=== PATIENT | female | born 1980 | race Caucasian/White ===

== ENCOUNTER 2016-09-18 11:28 | Emergency (ER) | payer OTHER ==
[~2016-09-18] VITALS: Ht 157.5 cm; Wt 77.7 kg
[~2016-09-18 11:28] MED LIST: DICY10CA60 PO; DOCU-144 PO; IBUP-1542 PO; METO10TA92 PO; ONDA4TAB35 PO
[2016-09-18 11:32] VITALS: Ht 157.5 cm; Wt 77.7 kg
[2016-09-18] MEDS ORDERED: GUAI-637 PO (13:24)
--- NOTE | 2016-09-18 13:51 | ERD ---
ER Documentation Chief Complaint Date/Time DATE: 09/18/16 TIME: 13:48 Chief Complaint pt bib self with c/o cough since Tuesday, pt is 37wks preg, no OB complaints HPI This is a 35-year-old female that presents to the ER with cold symptoms that started on Tuesday. On Tuesday patient states that she developed a cough. Cough is worsening. On patient states she went to her OB who gave her Robitussin. Patient has been taking Robitussin, however cough continues. Patient denies any chest pain or shortness of breath. She denies any fevers or chills. She does admit to left ear pain. Patient denies any discharge from her left ear. Patient does not have any OB complaints. She denies any pelvic pain she denies any vaginal leakage or any type of contractions. ROS 12 point review of systems was done, all negative except per HPI. Medications Home Meds Active Scripts Guaifenesin* (Robitussin*) 100 Mg/5 Ml Syrup, 200 MG PO Q6H Y for COUGH for 3 Days, ML Prov:MARCIA MOREJON 09/18/16 Metoclopramide* (Reglan*) 10 Mg Tablet, 10 MG PO Q6 Y for NAUSEA AND/OR VOMITING , #10 TAB Prov:AARON RUBIN DO 03/06/16 Docusate Sodium* (Colace*) 100 Mg Capsule, 100 MG PO TID, #30 CAP Prov:SCOTTIEAARON 03/06/16 Ondansetron Hcl* (Zofran* ODT) 4 mg -ODT Tab.disper, 4 MG PO Q8, #30 TAB Prov:ABDIEL CONTRERAS NP 02/01/16 Ibuprofen* (Motrin*) 600 Mg Tab, 600 MG PO Q6H Y for PAIN AND OR ELEVATED TEMP, #30 TAB Prov:ABDIEL CONTRERAS NP 02/01/16 Dicyclomine Hcl* (Bentyl*) 10 Mg Capsule, 20 MG PO QID, #20 CAP Prov:ABDIEL CONTRERAS NP 02/01/16 Allergies Allergies: Coded Allergies: amoxicillin (Verified Allergy, Unknown, 03/30/16) PMhx/Soc Medical and Surgical Hx: pt denies Medical Hx History of Surgery: Yes (,tonsillectomy,sinus sx) Anesthesia Reaction: No Hx Neurological Disorder: No Hx Respiratory Disorders: No Hx Cardiac Disorders: No Hx Psychiatric Problems: No Hx Miscellaneous Medical Probl: No Hx Alcohol Use: No Hx Substance Use: No Hx Tobacco Use: No Smoking Status: Never smoker Physical Exam Vitals Vital Signs Date Time Temp Pulse Resp B/P Pulse Ox O2 Delivery O2 Flow Rate FiO2 09/18/16 11:32 97.3 88 20 115/56 97 Physical Exam GENERAL: The patient is well-developed, well-nourished, in no acute distress. NECK: Cervical spine is non tender with no step off. Supple, no nuchal rigidity HEENT: Atraumatic. Pupils equal, round and reactive to light. Extraocular muscles are grossly intact. Conjunctivae pink, no discharge. Bilateral tympanic membranes are clear with no evidence of erythema, effusion or dulling of the light reflex. Tonsilar erythema with no exudates or uvular deviation. Clear rhinorrhea. RESPIRATORY: Clear to auscultation bilaterally. There are no rales, wheezes or rhonchi. HEART: Regular rate and rhythm. No murmurs, clicks, rubs or gallops. EXTREMITIES: No clubbing or cyanosis. Full range of motion. Grossly neurovascularly intact. NEUROLOGIC: Alert and oriented. Cranial nerves II through XII are intact. SKIN: There is no rash. The skin is warm and dry. Procedures/MDM Differential diagnosis includes but is not limited to; Viral URI, allergic rhinitis, bronchitis, pertussis,pneumonia. This is likely viral in etiology. Clinical suspicion for pneumonia is low as patient appears well, is not hypoxic or in any respiratory distress. Additionally, patients physical examination is benign. Plan was discussed with patient they understand and agree. Patient needs to follow up with PCP in 1-2 days or return to ER sooner if symptoms worsen. Departure Diagnosis: Primary Impression: Upper respiratory infection Condition: Stable Patient Instructions: Preventing Common Respiratory Infections Referrals: SABINO SANTILLAN Additional Instructions: Llame al doctor AMANDA y rochelle eulalio LESTER PARA DENTRO DE 1-2 CORTES.Dgale a la secretaria que nosotros le instruimos hacer esta lester.Avise o llame si zamora condicin se empeora antes de la lester. Regresa aqui si peor o no mejor. MARCIA MOREJON Sep 18, 2016 13:51
== END 2016-09-18 13:30 | disposition home or self-care (01) ==
LOC: FTE 11:28
DX: O99.513 Diseases of the respiratory system complicating pregnancy, third trimester (principal); J06.9 Acute upper respiratory infection, unspecified; Z3A.37 37 weeks gestation of pregnancy
CPT/HCPCS: 99283

== ENCOUNTER 2016-10-04 23:49 | Emergency (ER) | payer OTHER ==
[~2016-10-04] VITALS: Ht 162.6 cm; Wt 47.7 kg
[~2016-10-04 23:49] MED LIST changes: +GUAI-637 PO
[2016-10-05 00:03] VITALS: Ht 162.6 cm; Wt 47.7 kg
[2016-10-05 01:24] LABS: ADD SCAN DIFF NO
[2016-10-05 01:26] LABS: BASOPHILS % 0.1 % (0.0-2.0); EOSINOPHILS # 0.1 10^3/ul (0.0-0.5); EOSINOPHILS % 1.3 % (0.0-7.0); HEMATOCRIT 39.8 % (37.0-47.0); HEMOGLOBIN 13.2 g/dl (12.0-16.0); LYMPHOCYTES # 2.1 10^3/ul (0.8-2.9); LYMPHOCYTES % 26.9 % (15.0-51.0); MEAN CORPUSCULAR HGB CONC 33.2 g/dl (32.0-37.0); MEAN CORPUSCULAR VOLUME 93.4 fl (82.0-101.0); MEAN PLATELET VOLUME 9.5 fl (7.4-10.4); MONOCYTE # 0.5 10^3/ul (0.3-0.9); MONOCYTES % 6.2 % (0.0-11.0); NEUTROPHIL # 5.1 10^3/ul (1.6-7.5); NEUTROPHILS % 65.1 % (39.0-77.0); PLATELET COUNT 314 10^3/UL (140-415); RED BLOOD COUNT 4.26 10^6/ul (4.20-5.40); RED CELL DISTRIBUTION WIDTH 13.4 % (11.5-14.5); WHITE BLOOD COUNT 7.8 10^3/ul (4.8-10.8)
[2016-10-05 01:27] VITALS: BP 120/73; PULSE 71; RESP 20; TEMP 98
[2016-10-05] MEDS ORDERED: LORAZEPAM 2 MG INJ IV ONE (01:30)
[2016-10-05 01:33] LABS: ALBUMIN 3.9 g/dl (3.3-4.9)
[2016-10-05 01:34] LABS: POTASSIUM 3.5 mmol/L (3.5-5.1)
[2016-10-05 01:35] LABS: INR 0.94; PROTIME 12.6 Sec (12.2-14.2)
[2016-10-05 01:36] LABS: BILIRUBIN,INDIRECT 0.2 mg/dl (0-1.1); BILIRUBIN,TOTAL 0.2 mg/dl (0.2-1.3); CREATININE 0.58 mg/dl (0.44-1.00); PARTIAL THROMBOPLASTIN TIME 29.9 Sec (25.0-35.0)
[2016-10-05 01:37] LABS: ALBUMIN/GLOBULIN RATIO 1.11; CALCIUM 9.1 mg/dl (8.4-10.2); TOTAL PROTEIN 7.4 g/dl (6.1-8.1)
--- NOTE | 2016-10-05 01:43 | RADRPT ---
PROCEDURE: XR Chest. CLINICAL INDICATION: Chest pain. TECHNIQUE: Single frontal chest x-ray. COMPARISON: None. FINDINGS: The cardiomediastinal silhouette is unremarkable. The lungs are clear. No focal infiltrate is seen. There is no pleural effusion. There is no pneumothorax. The osseous structures are unremarkable. IMPRESSION: 1. No active disease. RPTAT: HMVK .Hunter Taylor MD, MD Date Time Electronically viewed and signed by .Hunter Taylor MD, on 10/05/2016 01:42 .K/
[2016-10-05 01:50] LABS: TROPONIN-I 0.019 ng/ml (0.00-0.12)
--- NOTE | 2016-10-05 01:55 | ERD ---
ER Documentation Chief Complaint Date/Time DATE: 10/05/16 TIME: 01:54 Chief Complaint LT SIDE CP RADIATING TO LEFT ARM +SOB X1 WEEK WORSE TONIGHT HPI This is a 35 year female with a chest pain rating to left arm. She has had shortness of breath. Says it is worse tonight. No fevers no chills. She has been under a lot of stress lately. She denies any other current complaints. ROS All systems reviewed and are negative except as per history of present illness. Medications Home Meds Active Scripts Guaifenesin* (Robitussin*) 100 Mg/5 Ml Syrup, 200 MG PO Q6H Y for COUGH for 3 Days, ML Prov:MARCIA MOREJON 09/18/16 Metoclopramide* (Reglan*) 10 Mg Tablet, 10 MG PO Q6 Y for NAUSEA AND/OR VOMITING , #10 [facility] 03/06/16 Docusate Sodium* (Colace*) 100 Mg Capsule, 100 MG PO TID, #30 CAP [facility] 03/06/16 Ondansetron Hcl* (Zofran* ODT) 4 mg -ODT Tab.disper, 4 MG PO Q8, #30 TAB Prov:ABDIEL CONTRERAS FORM GRADER OPERATOR 02/01/16 Ibuprofen* (Motrin*) 600 Mg Tab, 600 MG PO Q6H Y for PAIN AND OR ELEVATED TEMP, #30 TAB Prov:ABDIEL CONTRERAS FORM GRADER OPERATOR 02/01/16 Dicyclomine Hcl* (Bentyl*) 10 Mg Capsule, 20 MG PO QID, #20 CAP Prov:ABDIEL CONTRERAS FORM GRADER OPERATOR 02/01/16 Allergies Allergies: Coded Allergies: amoxicillin (Verified Allergy, Unknown, 03/30/16) PMhx/Soc History of Surgery: Yes (,tonsillectomy,sinus sx) Anesthesia Reaction: No Hx Neurological Disorder: No Hx Respiratory Disorders: No Hx Cardiac Disorders: No Hx Psychiatric Problems: No Hx Miscellaneous Medical Probl: No Hx Alcohol Use: No Hx Substance Use: No Hx Tobacco Use: No Smoking Status: Never smoker Physical Exam Vitals Vital Signs Date Time Temp Pulse Resp B/P Pulse Ox O2 Delivery O2 Flow Rate FiO2 10/05/16 01:27 98.0 71 20 120/73 100 Room Air 10/05/16 01:27 Nasal Cannula 10/05/16 00:03 97.9 85 24 141/78 97 Physical Exam Const: [] Head: Atraumatic Eyes: Normal Conjunctiva ENT: Normal External Ears, Nose and Mouth. Neck: Full range of motion..~ No meningismus. Resp: Clear to auscultation bilaterally Cardio: Regular rate and rhythm, no murmurs Abd: Soft, non tender, non distended. Normal bowel sounds Skin: No petechiae or rashes Back: No midline or flank tenderness Ext: No cyanosis, or edema Neur: Awake and alert Psych: Normal Mood and Affect Result Diagram: 10/05/169910/05/16 0100 Results 24 hrs Laboratory Tests Test 10/05/16 01:00 Activated Partial Thromboplast Time 29.9Sec Alanine Aminotransferase (ALT/SGPT) 43IU/L Albumin 3.9g/dl Albumin/Globulin Ratio 1.11 Alkaline Phosphatase 107IU/L Anion Gap 18 Aspartate Amino Transf (AST/SGOT) 33IU/L B-Type Natriuretic Peptide 39PG/ML Basophils # 0.010^3/ul Basophils % 0.1% Blood Urea Nitrogen 10mg/dl Calcium Level 9.1mg/dl Carbon Dioxide Level 22mmol/L Chloride Level 107mmol/L Creatinine 0.58mg/dl Direct Bilirubin 0.00mg/dl Eosinophils # 0.110^3/ul Eosinophils % 1.3% Globulin 3.50g/dl Glucose Level 87mg/dl Hematocrit 39.8% Hemoglobin 13.2g/dl INR International Normalized Ratio 0.94 Indirect Bilirubin 0.2mg/dl Lymphocytes # 2.110^3/ul Lymphocytes % 26.9% Mean Corpuscular Hemoglobin 31.0pg Mean Corpuscular Hemoglobin Concent 33.2g/dl Mean Corpuscular Volume 93.4fl Mean Platelet Volume 9.5fl Monocytes # 0.510^3/ul Monocytes % 6.2% Neutrophils # 5.110^3/ul Neutrophils % 65.1% Nucleated Red Blood Cells # 0.010^3/ul Nucleated Red Blood Cells % 0.0/100WBC Platelet Count 77233^3/UL Potassium Level 3.5mmol/L Prothrombin Time 12.6Sec Prothrombin Time Ratio 1.0 Red Blood Count 4.2610^6/ul Red Cell Distribution Width 13.4% Sodium Level 143mmol/L Total Bilirubin 0.2mg/dl Total Protein 7.4g/dl Troponin I 0.019ng/ml White Blood Count 7.810^3/ul Current Medications Medications (Trade) Dose Ordered Sig/Damaris Route PRN Reason Start Time Stop Time Status Last Admin Dose Admin Lorazepam (Ativan) 1 mg ONCE ONCE IV 10/05/16 01:30 10/05/16 01:31 DC 10/05/16 01:34 Procedures/MDM Chest X-ray 1V Interpreted by me: Soft Tissue: No acute abnormalities Bones: No acute abnormalities Mediastinum/Cardiac Silhouette/Lungs: No acute abnormalities EKG: Rate/Rhythm: Normal Sinus Rhythm QRS, ST, T-waves: No changes consistent w/ acute ischemia Impression: No evidence of ischemia or arrhythmia Patient's thoracic symptoms have stabilized while in the department and are stable for outpatient follow up. Exam and work up not consistent w/ ischemia, arrhythmia, PE or dissection. Departure Diagnosis: Primary Impression: Chest pain Chest pain type: unspecified Qualified Code: R07.9 - Chest pain, unspecified type Condition: Stable MARIO MILLER Oct 05, 2016 01:54
[2016-10-05] MEDS ORDERED: LORA-441 PO (01:58)
== END 2016-10-05 03:03 | disposition home or self-care (01) ==
LOC: E/R 23:49
DX: R07.9 Chest pain, unspecified (principal); R06.02 Shortness of breath
CPT/HCPCS: 36415; 71010; 80053; 83880; 84484; 85025; 85610; 85730; 93005; 96374; J2060; Z7502

== ENCOUNTER 2016-10-08 22:59 | Emergency (ER) | payer OTHER ==
[~2016-10-08] VITALS: Ht 152.4 cm; Wt 67.5 kg
[~2016-10-08 22:59] MED LIST changes: +LORA-441 PO
[2016-10-08 23:34] VITALS: Ht 152.4 cm; Wt 67.5 kg
[2016-10-09 04:04] LABS: ADD SCAN DIFF NO
[2016-10-09 04:27] LABS: CHLORIDE 104 mmol/L (97-110)
[2016-10-09 04:28] LABS: INR 0.96; POTASSIUM 4.1 mmol/L (3.5-5.1); PROTIME 12.8 Sec (12.2-14.2); SODIUM 142 mmol/L (135-144)
[2016-10-09 04:29] LABS: PARTIAL THROMBOPLASTIN TIME 30.2 Sec (25.0-35.0)
[2016-10-09 04:30] LABS: CREATININE 0.72 mg/dl (0.44-1.00)
[2016-10-09 04:31] LABS: ANION GAP 20 (8-16); BASOPHILS % 0.1 % (0.0-2.0); BLOOD UREA NITROGEN 12 mg/dl (7-20); CALCIUM 9.6 mg/dl (8.4-10.2); CARBON DIOXIDE 22 mmol/L (21-31); D-DIMER 804.48 ng/ml (<460); EOSINOPHILS # 0.2 10^3/ul (0.0-0.5); EOSINOPHILS % 1.4 % (0.0-7.0); GLUCOSE 78 mg/dl (70-220); HEMATOCRIT 43.2 % (37.0-47.0); HEMOGLOBIN 14.9 g/dl (12.0-16.0); LYMPHOCYTES # 2.5 10^3/ul (0.8-2.9); LYMPHOCYTES % 18.9 % (15.0-51.0); MEAN CORPUSCULAR HEMOGLOBIN 31.4 pg (29.0-33.0); MEAN CORPUSCULAR HGB CONC 34.5 g/dl (32.0-37.0); MEAN CORPUSCULAR VOLUME 90.9 fl (82.0-101.0); MEAN PLATELET VOLUME 9.8 fl (7.4-10.4); MONOCYTE # 0.6 10^3/ul (0.3-0.9); MONOCYTES % 4.2 % (0.0-11.0); PLATELET COUNT 283 10^3/UL (140-415); RED BLOOD COUNT 4.75 10^6/ul (4.20-5.40); WHITE BLOOD COUNT 13.3 10^3/ul (4.8-10.8)
[2016-10-09] MEDS ORDERED: SOD CHLORIDE 0.9% 100 ML ONE (04:53)
[2016-10-09] MEDS ORDERED: IOHEXOL 100 ML ONE (04:53)
[2016-10-09 05:00] LABS: TROPONIN-I < 0.012 ng/ml (0.00-0.12)
--- NOTE | 2016-10-09 05:08 | RADRPT ---
PROCEDURE: CHEST - 1 VIEW CLINICAL INDICATION: 35-year-old female with chest pain. TECHNIQUE: A single frontal AP semi-erect view of the chest was performed portably. The images we re reviewed on a PACS workstation. COMPARISON: Chest x-ray October 05, 2016. FINDINGS: The cardiomediastinal silhouette has a normal appearance. There is no evidence for an infiltrate. There is no evidence for congestive heart failure. There is no evidence for pneumothorax. The osseou s structures are intact. IMPRESSION: No evidence for active cardiopulmonary disease. .Alexey Casey MD, MD Date Time Electronically viewed and signed by .Alexey Casey MD, on 10/09/2016 05:08 .Sarita
--- NOTE | 2016-10-09 05:55 | ERA ---
ER Documentation Chief Complaint Date/Time DATE: 10/09/16 TIME: 05:52 Chief Complaint Anxiety and Eval from Clinic HPI This is a 35-year-old female who presents to the emergency room for evaluation of shortness of breath. This patient states that she was diagnosed with bronchitis approximately 2-3 weeks ago. She did receive an inhaler which helps her. She states that she is also 2 weeks and continues to have shortness of breath. She denies any chest pain or palpitations or nausea or vomiting. The patient was seen at a clinic and was referred to the emergency room for further evaluation. She denies any aggravating or relieving factors for her symptoms. ROS All systems reviewed and are negative except as per history of present illness. Medications Home Meds Active Scripts Lorazepam* (Ativan*) 0.5 Mg Tablet, 0.5 MG PO Q8H Y for ANXIETY, #10 TAB Prov:MARIO MILLER 10/05/16 Guaifenesin* (Robitussin*) 100 Mg/5 Ml Syrup, 200 MG PO Q6H Y for COUGH for 3 Days, ML Prov:MARCIA MOREJON 09/18/16 Metoclopramide* (Reglan*) 10 Mg Tablet, 10 MG PO Q6 Y for NAUSEA AND/OR VOMITING , #10 TAB Prov:AARON RUBIN DO 03/06/16 Docusate Sodium* (Colace*) 100 Mg Capsule, 100 MG PO TID, #30 CAP Prov:AARON RUBIN DO 03/06/16 Ondansetron Hcl* (Zofran* ODT) 4 mg -ODT Tab.disper, 4 MG PO Q8, #30 TAB Prov:ABDIEL CONTRERAS NP 02/01/16 Ibuprofen* (Motrin*) 600 Mg Tab, 600 MG PO Q6H Y for PAIN AND OR ELEVATED TEMP, #30 TAB Prov:ABDIEL CONTRERAS NP 02/01/16 Dicyclomine Hcl* (Bentyl*) 10 Mg Capsule, 20 MG PO QID, #20 CAP Prov:ABDIEL CONTRERAS NP 02/01/16 Allergies Allergies: Coded Allergies: amoxicillin (Verified Allergy, Unknown, 03/30/16) PMhx/Soc History of Surgery: Yes (,tonsillectomy,sinus sx) Anesthesia Reaction: No Hx Neurological Disorder: No Hx Respiratory Disorders: No Hx Cardiac Disorders: No Hx Psychiatric Problems: Yes (ANXIETY) Hx Miscellaneous Medical Probl: No Hx Alcohol Use: No Hx Substance Use: No Hx Tobacco Use: No Smoking Status: Never smoker Physical Exam Vitals Vital Signs Date Time Temp Pulse Resp B/P Pulse Ox O2 Delivery O2 Flow Rate FiO2 10/09/16 05:31 97.6 69 18 109/71 100 Room Air 10/09/16 04:10 Nasal Cannula 2 10/09/16 03:27 97.5 72 14 104/77 100 Room Air 10/08/16 23:34 98.1 68 18 131/66 98 Physical Exam INITIAL VITAL SIGNS: Reviewed by me GENERAL: The patient is well developed and appropriate for usual state of health in no apparent distress HEENT: Pupils equal, round, and reactive to light. EOMI. There is no scleral icterus. NECK: C-spine is soft and supple, there is no meningismus. There is no cervical lymphadenopathy. LUNGS: Clear to auscultation bilaterally. There are no rales, wheezes or rhonchi. HEART: Regular rate and rhythm, no murmurs, clicks, rubs or gallops. ABDOMEN: Soft, non-tender, non-distended. There are bowel sounds in all four quadrants. No rebound or guarding. EXTREMITIES: There is no peripheral cyanosis or edema. No focal swelling or erythema. NEUROLOGICAL: The patient moves all four extremities with 5/5 strength. Cranial nerves II - XII are intact. Normal gait. Alert and oriented SKIN: There is no apparent rash or petechiae. HEME/LYMPHATIC: There is no evidence of excessive bruising or lymphedema. PSYCHIATRIC: The patient does not appear anxious or depressed. Result Diagram: 10/09/16 0350 10/09/16 0350 Results 24 hrs Laboratory Tests Test 10/09/16 03:50 Activated Partial Thromboplast Time 30.2Sec Anion Gap 20 Basophils # 0.010^3/ul Basophils % 0.1% Blood Urea Nitrogen 12mg/dl Calcium Level 9.6mg/dl Carbon Dioxide Level 22mmol/L Chloride Level 104mmol/L Creatinine 0.72mg/dl D-Dimer 804.48ng/ml D-Dimer Comment Eosinophils # 0.210^3/ul Eosinophils % 1.4% Glucose Level 78mg/dl Hematocrit 43.2% Hemoglobin 14.9g/dl INR International Normalized Ratio 0.96 Lymphocytes # 2.510^3/ul Lymphocytes % 18.9% Mean Corpuscular Hemoglobin 31.4pg Mean Corpuscular Hemoglobin Concent 34.5g/dl Mean Corpuscular Volume 90.9fl Mean Platelet Volume 9.8fl Monocytes # 0.610^3/ul Monocytes % 4.2% Neutrophils # 10.010^3/ul Neutrophils % 75.0% Nucleated Red Blood Cells # 0.010^3/ul Nucleated Red Blood Cells % 0.0/100WBC Platelet Count 13000^3/UL Potassium Level 4.1mmol/L Prothrombin Time 12.8Sec Prothrombin Time Ratio 1.0 Red Blood Count 4.7510^6/ul Red Cell Distribution Width 13.0% Sodium Level 142mmol/L Troponin I < 0.012ng/ml White Blood Count 13.310^3/ul Current Medications Medications (Trade) Dose Ordered Sig/Damaris Route PRN Reason Start Time Stop Time Status Last Admin Dose Admin IV Flush 10 ml 10 ml STK-MED ONCE .ROUTE 10/09/16 04:53 10/09/16 04:54 DC 10/09/16 05:05 Sodium Chloride 100 ml @ ud STK-MED ONCE .ROUTE 10/09/16 04:53 10/09/16 04:54 DC 10/09/16 05:05 Iohexol (Omnipaque) 100 ml @ ud STK-MED ONCE .ROUTE 10/09/16 04:53 10/09/16 04:54 DC 10/09/16 05:05 Procedures/MDM EKG: Rate/Rhythm: [Normal Sinus Rhythm] QRS, ST, T-waves: [No changes consistent w/ acute ischemia] Impression: [No evidence of ischemia or arrhythmia] Chest X-ray 1V Interpreted by me: Soft Tissue: No acute abnormalities Bones: No acute abnormalities Mediastinum/Cardiac Silhouette/Lungs: [No acute abnormalities] This 35-year-old female presents to the emergency room for evaluation of shortness of breath. When I evaluated this patient she had no wheezing, she was not hypoxic. This patient had an EKG which was nonischemic. Troponin which was normal. I did obtain a d-dimer and it was elevated. This patient underwent a CT angios of the chest. This patient's disposition will depend on the results of the CT angios. Patient's disposition has been handed down to her oncoming physician, Dr. zaidi Departure Diagnosis: Primary Impression: Shortness of breath Condition: BARRETT Hines DO Oct 09, 2016 05:54
--- NOTE | 2016-10-09 06:06 | RADRPT ---
PROCEDURE: CTA CHEST WITH CONTRAST CLINICAL INDICATION: 35-year-old female with chest pain. TECHNIQUE: The study was performed utilizing a [employer] VCT 64-slice CT scanner. Direct axi al sections were obtained from the thoracic inlet through the chest to the upper abdomen with a bolu s injection of 90 cc of Omnipaque 350 nonionic contrast material. Sagittal, coronal and maximal inte nsity projections re-formations were obtained. Automated exposure control and iterative reconstructi on techniques were utilized for this examination. The images were reviewed on a PACS workstation. C TD/vol = 92.6 mGy; Total Exam DLP = 299.1 mGy-cm. COMPARISON: None. FINDINGS: The aorta is without aneurysmal dilatation or dissection. There are small lymph nodes seen within th e mediastinum which are not pathologic by size criteria. The central pulmonary arteries are without evidence for filling defect to suggest pulmonary embolus or thrombus. The study is limited secondary to respiratory artifact and incomplete opacification of the vascular secondary to bolus timing. Th ere is no evidence for an infiltrate. No abnormal soft tissue masses or nodular densities are visual ized. There is no evidence for a pneumothorax. Mild degenerative changes are seen within the mid th oracic spine. Scans through the upper abdomen reveals that the upper liver is unremarkable. The adrenal glands hav e a normal appearance. The upper kidneys are functional and are without evidence for obstruction. IMPRESSION: No CTA evidence for thoracic aortic aneurysm/dissection or central pulmonary embolus. Note however that the study is limited secondary to incomplete opacification of the pulmonary vasculature and res piratory artifact. .Alexey Casey MD, Date Time Electronically viewed and signed by .Alexey Casey MD, MD on 10/09/2016 06:06 .Sarita
[2016-10-09 07:55] VITALS: BP 118/62; PULSE 87; RESP 18; TEMP 98.3
== END 2016-10-09 07:55 | disposition home or self-care (01) ==
LOC: E/R 22:59
DX: R06.02 Shortness of breath (principal)
CPT/HCPCS: 36415; 71010; 71275; 80048; 84484; 85025; 85378; 85610; 85730; Q9967; Z7502; Z7610; 93005

== ENCOUNTER 2017-01-11 13:03 | Emergency (ER) | payer OTHER ==
[~2017-01-11] VITALS: Ht 157.5 cm; Wt 69.5 kg
[2017-01-11 13:17] VITALS: Ht 157.5 cm; Wt 69.5 kg
[2017-01-11 15:18] LABS: URINE BLOOD (Dip) POC Negative (NEGATIVE)
--- NOTE | 2017-01-11 15:42 | RADRPT ---
PROCEDURE: US Pelvis. CLINICAL INDICATION: Left pelvic pain. TECHNIQUE: The pelvis was evaluated with transabdominal and transvaginal sonography in the axial a nd sagittal planes. COMPARISON: No prior study is available for comparison. FINDINGS: Uterus: 9.4 x 4.2 x 6.4 cm. Endometrium: 10.0 mm. Right ovary: 3.1 x 1.7 x 1.9 cm. Left ovary: 2.3 x 1.1 x 1.3 cm. Uterine masses: None. Ovarian masses: None. Color Doppler and pulsed Doppler sonography demonstrate normal flow to the ova raghu. Other pelvic masses: None. Free fluid: None. IMPRESSION: 1. Normal pelvic ultrasound. RPTAT: QQ .Bandar Allan MD, MD Date Time Electronically viewed and signed by .Bandar Allan MD, on 01/11/2017 15:41 .R/
--- NOTE | 2017-01-11 16:15 | ERD ---
ER Documentation Chief Complaint Date/Time DATE: 01/11/17 TIME: 16:14 Chief Complaint BIB SELF C/O LEFT OVARIAN PAIN RADIATING TO LEFT BACK. HX OF OVARIAN CYST HPI This a 36-year-old female who presents emergency department today complaining of left-sided pelvic pain that is been intermittent for the past couple of years. States that it is worse for the past 2 days. States that she has seen her primary care doctor and had a hip x-ray done as the pain radiates to her back. She states that the x-ray was negative. Denies any dysuria, nausea vomiting diarrhea. Denies any fevers or chills. States she has been taking Naprosyn for the pain. ROS All systems reviewed and are negative except as per history of present illness. Medications Home Meds Active Scripts Acetaminophen* (Tylophen*) 500 Mg Capsule, 1 CAP PO Q6H Y for PAIN AND OR ELEVATED TEMP, #30 CAP Prov:EMMETT CARPENTER PA-C 01/11/17 Lorazepam* (Ativan*) 0.5 Mg Tablet, 0.5 MG PO Q8H Y for ANXIETY, #10 TAB Prov:MARIO MILLER 10/05/16 Guaifenesin* (Robitussin*) 100 Mg/5 Ml Syrup, 200 MG PO Q6H Y for COUGH for 3 Days, ML Prov:MARCIA MOREJON 09/18/16 Metoclopramide* (Reglan*) 10 Mg Tablet, 10 MG PO Q6 Y for NAUSEA AND/OR VOMITING , #10 TAB Prov:AARON RUBIN DO 03/06/16 Docusate Sodium* (Colace*) 100 Mg Capsule, 100 MG PO TID, #30 CAP Prov:AARON RUBIN DO 03/06/16 Ondansetron Hcl* (Zofran* ODT) 4 mg -ODT Tab.disper, 4 MG PO Q8, #30 TAB Prov:ABDIEL CONTRERAS NP 02/01/16 Ibuprofen* (Motrin*) 600 Mg Tab, 600 MG PO Q6H Y for PAIN AND OR ELEVATED TEMP, #30 TAB Prov:ABDIEL CONTRERAS NP 02/01/16 Dicyclomine Hcl* (Bentyl*) 10 Mg Capsule, 20 MG PO QID, #20 CAP Prov:ABDIEL CONTRERAS SENIOR MANUFACTURING SUPERVISOR 02/01/16 Allergies Allergies: Coded Allergies: amoxicillin (Verified Allergy, Unknown, 03/30/16) PMhx/Soc History of Surgery: Yes (,tonsillectomy,sinus sx) Anesthesia Reaction: No Hx Neurological Disorder: No Hx Respiratory Disorders: No Hx Cardiac Disorders: No Hx Psychiatric Problems: Yes (ANXIETY) Hx Miscellaneous Medical Probl: No Hx Alcohol Use: No Hx Substance Use: No Hx Tobacco Use: No Smoking Status: Never smoker Physical Exam Vitals Vital Signs Date Time Temp Pulse Resp B/P Pulse Ox O2 Delivery O2 Flow Rate FiO2 01/11/17 13:17 98.7 85 18 129/63 98 Physical Exam Const: No acute distress Head: Atraumatic Eyes: Normal Conjunctiva ENT: Normal External Ears, Nose and Mouth. Neck: Full range of motion..~ No meningismus. Resp: Clear to auscultation bilaterally Cardio: Regular rate and rhythm, no murmurs Abd: Soft, left-sided pelvic non distended. Normal bowel sounds. No right lower quadrant pain. No tenderness McBurney's. Skin: No petechiae or rashes Back: No midline tenderness. No CVA tenderness. Full active range of motion. Ext: No cyanosis, or edema Neur: Awake and alert Psych: Normal Mood and Affect Results 24 hrs Laboratory Tests Test 01/11/17 15:22 Bedside Urine pH (LAB) 6.0 Bedside Urine Protein (LAB) Negative Bedside Urine Glucose (UA) Negative Bedside Urine Ketones (LAB) Negative Bedside Urine Blood Negative Bedside Urine Nitrite (LAB) Negative Bedside Urine Leukocyte Esterase (L Trace DIAGNOSTIC IMAGING REPORT Patient: KELLY OLIVA : 1980 Age: 36 Sex: F MR #: [id number] DOS: 01/11/17 0000 Ordering MD: EMMETT CARPENTER PA-C Location: [facility] Room/Bed: PROCEDURE: US Pelvis. CLINICAL INDICATION: Left pelvic pain. TECHNIQUE: The pelvis was evaluated with transabdominal and transvaginal sonography in the axial and sagittal planes. COMPARISON: No prior study is available for comparison. FINDINGS: Uterus: 9.4 x 4.2 x 6.4 cm. Endometrium: 10.0 mm. Right ovary: 3.1 x 1.7 x 1.9 cm. Left ovary: 2.3 x 1.1 x 1.3 cm. Uterine masses: None. Ovarian masses: None. Color Doppler and pulsed Doppler sonography demonstrate normal flow to the ovaries. Other pelvic masses: None. Free fluid: None. IMPRESSION: 1. Normal pelvic ultrasound. RPTAT: QQ .Bandar Allan MD, MD Date Time Electronically viewed and signed by .Bandar Allan MD, on 01/11/2017 15:41 .R/ CC: EMMETT CARPENTER PA-C Procedures/MDM This a 36-year-old female presents to the emergency department today complaining of left-sided pelvic pain that is been intermittent for the past couple of years and worse over the past 2 days. Did obtain a UA and pelvic ultrasound Ultrasound shows a normal pelvic ultrasound. There are no ovarian or uterine masses. There is no free fluid. UA shows trace leukocyte esterase test is negative Patient has left-sided pelvic pain of uncertain etiology. Low suspicion for acute surgical abdomen, delivering abscess, ovarian torsion, ectopic Patient instructed follow back up with her primary care physician for further evaluation and management. She may continue taking her Naprosyn as prescribed. At this time the patient is stable for discharge and outpatient management. Patient should follow up with their PCP in the next 1-2 days. They may return to the emergency department sooner for any persistent or worsening of symptoms. Patient understood and agreed with the plan. Departure Diagnosis: Primary Impression: Pelvic pain Condition: Fair EMMETT CARPENTER PA-C Jan 11, 2017 16:15
[2017-01-11] MEDS ORDERED: ACET500C5 PO (16:16)
== END 2017-01-11 16:47 | disposition home or self-care (01) ==
LOC: FTE 13:03
DX: R10.2 Pelvic and perineal pain (principal)
CPT/HCPCS: 76830; 76856; 81003; Z7502

== ENCOUNTER 2017-04-20 17:16 | Emergency (ER) | payer OTHER ==
[~2017-04-20] VITALS: Ht 160 cm; Wt 66.0 kg
[~2017-04-20 17:16] MED LIST changes: +ACET500C5 PO
[2017-04-20 17:19] VITALS: Ht 160 cm; Wt 66.0 kg
[2017-04-20 19:48] LABS: URINE BLOOD (Dip) POC Negative (NEGATIVE)
[2017-04-20] MEDS ORDERED: IBUP-1542 PO (20:19)
--- NOTE | 2017-04-20 20:22 | ERD ---
ER Documentation Chief Complaint Date/Time DATE: 04/20/17 TIME: 20:20 Chief Complaint bilateral ear pain x8 days HPI This 36-year-old female complains of bilateral ear pain for last 8 days. She denies fevers, cough, congestion, bleeding or discharge. Patient is an additional complaint after exam of left low back pain and left buttock pain. She denies dysuria, fevers, abdominal pain. She denies any history of trauma. ROS All systems reviewed and are negative except as per history of present illness. Medications Home Meds Active Scripts Ibuprofen* (Motrin*) 600 Mg Tab, 600 MG PO Q6, #20 TAB Prov:IBIS HOWELL MD 04/20/17 Acetaminophen* (Tylophen*) 500 Mg Capsule, 1 CAP PO Q6H Y for PAIN AND OR ELEVATED TEMP, #30 CAP Prov:EMMETT CARPENTER PA-C 01/11/17 Lorazepam* (Ativan*) 0.5 Mg Tablet, 0.5 MG PO Q8H Y for ANXIETY, #10 TAB Prov:MARIO MILLER 10/05/16 Guaifenesin* (Robitussin*) 100 Mg/5 Ml Syrup, 200 MG PO Q6H Y for COUGH for 3 Days, ML Prov:MARCIA MOREJON 09/18/16 Metoclopramide* (Reglan*) 10 Mg Tablet, 10 MG PO Q6 Y for NAUSEA AND/OR VOMITING , #10 TAB Prov:AARON RUBIN DO 03/06/16 Docusate Sodium* (Colace*) 100 Mg Capsule, 100 MG PO TID, #30 CAP Prov:AARON RUBIN DO 03/06/16 Ondansetron Hcl* (Zofran* ODT) 4 mg -ODT Tab.disper, 4 MG PO Q8, #30 TAB Prov:ABDIEL CONTRERAS NP 02/01/16 Ibuprofen* (Motrin*) 600 Mg Tab, 600 MG PO Q6H Y for PAIN AND OR ELEVATED TEMP, #30 TAB Prov:ABDIEL CONTRERAS NP 02/01/16 Dicyclomine Hcl* (Bentyl*) 10 Mg Capsule, 20 MG PO QID, #20 CAP Prov:ABDIEL CONTRERAS NP 02/01/16 Allergies Allergies: Coded Allergies: amoxicillin (Verified Allergy, Unknown, 03/30/16) PMhx/Soc History of Surgery: Yes (,tonsillectomy,sinus sx) Anesthesia Reaction: No Hx Neurological Disorder: No Hx Respiratory Disorders: No Hx Cardiac Disorders: No Hx Psychiatric Problems: Yes (ANXIETY) Hx Miscellaneous Medical Probl: No Hx Alcohol Use: No Hx Substance Use: No Hx Tobacco Use: No Smoking Status: Never smoker Physical Exam Vitals Vital Signs Date Time Temp Pulse Resp B/P Pulse Ox O2 Delivery O2 Flow Rate FiO2 04/20/17 17:19 98.3 78 18 115/58 98 Physical Exam Const: [], [id number]. Head: Atraumatic Eyes: Normal Conjunctiva ENT: Normal External Ears, Nose and Mouth. TMs normal. Positive tenderness of bilateral TMJ joints. Neck: Full range of motion..~ No meningismus. Resp: Clear to auscultation bilaterally Cardio: Regular rate and rhythm, no murmurs Abd: Soft, non tender, non distended. Normal bowel sounds Skin: No petechiae or rashes Back: No midline or flank tenderness. Mild left L4-L5 tenderness left buttock tenderness. No CVA tenderness. Ext: No cyanosis, or edema Neur: Awake and alert Psych: Normal Mood and Affect Results 24 hrs Laboratory Tests Test 04/20/17 19:55 Bedside Urine pH (LAB) 8.5 Bedside Urine Protein (LAB) Negative Bedside Urine Glucose (UA) Negative Bedside Urine Ketones (LAB) Negative Bedside Urine Blood Negative Bedside Urine Nitrite (LAB) Negative Bedside Urine Leukocyte Esterase (L 1+ Procedures/MDM Presents with complaint of bilateral ear pain and signs of TMJ. Ear exam is normal. She also has symptoms and signs of skeletal low back pain. Urine shows 1+ leukocytes but was sent for culture. We will defer treatment until urine culture given absence of flank tenderness and dysuria. She will be discharged home with prescription of ibuprofen, stretches for jaw rest and primary care follow-up and return precautions. No evidence to suggest epidural abscess, fracture, dislocation, cauda equina syndrome. The patient was stable with no new complaints during the ER course. Clinically, there is no current evidence to suggest meningitis, sepsis, acute abdomen, pneumonia, acute coronary syndrome, pulmonary embolism, or any other emergent condition appearing to require further evaluation or hospitalization. The patient should certainly return for any new or worsening symptoms per the aftercare instructions. They should otherwise follow-up with her primary care doctor for reevaluation this week. Departure Diagnosis: Primary Impression: Low back pain Chronicity: acute Back pain laterality: left Sciatica presence: without sciatica Qualified Code: M54.5 - Acute left-sided low back pain without sciatica Additional Impression: TMJ arthralgia Laterality: bilateral Qualified Code: M26.623 - Bilateral temporomandibular joint pain Condition: Stable Patient Instructions: Possible Causes of Low Back or Leg Pain, Tmj Syndrome Additional Instructions: VAMOS A LLAMAR CON RESULTADOS DE ORINA ABNORMALES. Examines DE OIDOS normal hoy. Cheque otro vez con zamora doctor primario en el proximo serrano or regresa para mas o nueva simptomas. IBIS HOWELL MD Apr 20, 2017 20:22
== END 2017-04-20 20:34 | disposition home or self-care (01) ==
LOC: FTE 17:16
DX: M54.5 Low back pain (principal); M26.623 Arthralgia of bilateral temporomandibular joint
CPT/HCPCS: 81003; 99283

== ENCOUNTER 2017-06-24 09:26 | Emergency (ER) | payer OTHER ==
[~2017-06-24] VITALS: Ht 160 cm; Wt 66.0 kg
[2017-06-24 09:37] VITALS: Ht 160 cm; Wt 66.0 kg
[2017-06-24 10:23] LABS: URINE BLOOD (Dip) POC 3+ (NEGATIVE)
[2017-06-24] MEDS ORDERED: LOPE2CAP PO (10:45)
--- NOTE | 2017-06-24 13:17 | ERD ---
ER Documentation Chief Complaint Chief Complaint PT presents with AP and diarrhea since yesterday. HPI 36-year-old female presenting with her 2 children with the chief complaints of diarrhea and lower abdominal pain. Denies pelvic pain, fever, chills, nausea, vomiting, constipation, headache, meningismus, discharge, dysuria, or hematuria. No past surgical history. No aggravating or alleviating factors. Has not taken any medication to relieve the symptoms. Patient has no other complaints and describes no other associated manifestations. Nursing notes have been reviewed and are consistent with history given. ROS All systems reviewed and are negative except as per history of present illness. Medications Home Meds Active Scripts Loperamide Hcl* (Imodium*) 2 Mg Capsule, 2 MG PO .AFTER EA LOOSE BM Y for DIARRHEA, #10 TAB Prov:WINIFRED BARTON PA-C 06/24/17 Ibuprofen* (Motrin*) 600 Mg Tab, 600 MG PO Q6, #20 TAB Prov:IBIS HOWELL MD 04/20/17 Acetaminophen* (Tylophen*) 500 Mg Capsule, 1 CAP PO Q6H Y for PAIN AND OR ELEVATED TEMP, #30 CAP Prov:EMMETT CARPENTER PA-C 01/11/17 Lorazepam* (Ativan*) 0.5 Mg Tablet, 0.5 MG PO Q8H Y for ANXIETY, #10 TAB Prov:MARIO MILLER 10/05/16 Guaifenesin* (Robitussin*) 100 Mg/5 Ml Syrup, 200 MG PO Q6H Y for COUGH for 3 Days, ML Prov:MARCIA MOREJON 09/18/16 Metoclopramide* (Reglan*) 10 Mg Tablet, 10 MG PO Q6 Y for NAUSEA AND/OR VOMITING , #10 TAB Prov:AARON RUBIN DO 03/06/16 Docusate Sodium* (Colace*) 100 Mg Capsule, 100 MG PO TID, #30 CAP Prov:AARON RUBIN DO 03/06/16 Ondansetron Hcl* (Zofran* ODT) 4 mg -ODT Tab.disper, 4 MG PO Q8, #30 TAB Prov:ABDIEL CONTRERAS NP 02/01/16 Ibuprofen* (Motrin*) 600 Mg Tab, 600 MG PO Q6H Y for PAIN AND OR ELEVATED TEMP, #30 TAB Prov:ABDIEL CONTRERAS. NURSE GYNECOLOGY 02/01/16 Dicyclomine Hcl* (Bentyl*) 10 Mg Capsule, 20 MG PO QID, #20 CAP Prov:ABDIEL CONTRERAS. NURSE GYNECOLOGY 02/01/16 Allergies Allergies: Coded Allergies: amoxicillin (Verified Allergy, Unknown, 03/30/16) PMhx/Soc Medical and Surgical Hx: pt denies Medical Hx, pt denies Surgical Hx History of Surgery: Yes (,tonsillectomy,sinus sx) Anesthesia Reaction: No Hx Neurological Disorder: No Hx Respiratory Disorders: No Hx Cardiac Disorders: No Hx Psychiatric Problems: Yes (ANXIETY) Hx Miscellaneous Medical Probl: No Hx Alcohol Use: No Hx Substance Use: No Hx Tobacco Use: No Physical Exam Vitals Vital Signs Date Time Temp Pulse Resp B/P Pulse Ox O2 Delivery O2 Flow Rate FiO2 06/24/17 09:37 98.6 69 20 133/72 97 Physical Exam Const: Overweight. No acute distress. Abd: No tenderness elicited with palpation. Negative rovsings, psoas, obturator & murphys signs. No Mcburneys point tenderness. Able to hop with heel-strike without eliciting discomfort. Normal bowl sounds auscultated in all 4 quadrants. No aortic / renal / iliac bruits appreciated. No abnormalities noted upon percussion of liver, spleen, or over the 4 abdominal quadrants. No hepatomegaly, splenomegaly, or enlarged abdominal aorta appreciated upon palpation. Abdomen non-distended and soft with no rebound or guarding. Back: No CVA tenderness. No midline or flank tenderness. Head: Normocephalic, Atraumatic. Eyes: Non-injected; No scleral erythema, discharge or foreign body. EOMI and CASSANDRA bilaterally. Ears: Normal External Ears, EACs clear, TM normal bilaterally without erythema. Nose: Normal nose without discharge, septal deviation, or sinus tenderness. Oral: No oral edema visualized. Mucous membranes moist and pink. Neck: No cervical lymphadenopathy, masses or goiter palpated. Trachea midline. Supple ~ No meningismus. Pulm: No dyspnea, stridor, tripoding or drooling. Good air movement. Clear to auscultation bilaterally. Cardio: Regular rate and rhythm; No murmurs, gallops or rubs auscultated. No JVD grossly observed. Radial and posterior tibial pulses 2+ bilaterally. Capillary refill less than 2 seconds. MS: Normal motor strength, normal tone with gross examination. Skin: No petechiae or rashes. No ulcer, induration, jaundice. Good turgor. Ext: No cyanosis, edema or palpable cord. Normal movement of all extremities grossly observed. Neur: Awake, alert and oriented x3. Neurovascularly intact bilaterally. Psych: Normal Mood and Affect. Results 24 hrs Laboratory Tests Test 06/24/17 10:23 Bedside Urine pH (LAB) 5.5 Bedside Urine Protein (LAB) Negative Bedside Urine Glucose (UA) Negative Bedside Urine Ketones (LAB) Negative Bedside Urine Blood 3+ Bedside Urine Nitrite (LAB) Negative Bedside Urine Leukocyte Esterase (L Negative Procedures/MDM 36-year-old female presents with a chief complaint of lower abdominal pain. Urinary test was negative. Urine dip was unremarkable. Patient has had diarrhea. Denies fever, chills, pelvic pain, discharge. Most likely diagnosis is gastritis versus gastroenteritis versus diarrhea of unknown etiology. I will suspicion for PID, ovarian torsion, pyelonephritis, appendicitis, diverticulitis, or other acute abdomen. Patient will be given loperamide for control of diarrhea. Have recommended follow-up with PCP in the next 1-3 days. I have spoke with the patient regarding their condition and future management. They have verbally responded that they understand their status and treatment plan. The patients vitals are stable, and their current condition is appropriate for discharge. The patient will be given discharge instructions with return precautions. Discharge medications: Loperamide Departure Diagnosis: Primary Impression: Diarrhea Diarrhea type: unspecified type Qualified Code: R19.7 - Diarrhea, unspecified type Condition: Stable Patient Instructions: Self-Care for Vomiting and Diarrhea Referrals: JONAS CORRAL (PCP) Additional Instructions: Sunil un seguimiento con zamora PCP dentro de los prximos 1-3 byrd para eulalio evaluaci n ms completa y eulalio posible derivacin a un especialista. Devuelva el departamento de emergencia inmediatamente si los sntomas empeoran o cambian. Si tiene alguna pregunta con respecto a los medicamentos, consulte con zamora farmac utico o con nosotros antes de salir. Si se producen reacciones adversas mientras abimael emili medicamentos, suspenda el tratamiento y regrese inmediatamente al servicio de urgencias. [place] emili medicamentos segn las indicaciones y complete el curso completo del tratamiento. WINIFRED BARTON PA-C Jun 24, 2017 13:17
== END 2017-06-24 10:51 | disposition home or self-care (01) ==
LOC: FTE 09:26
DX: R19.7 Diarrhea, unspecified (principal)
CPT/HCPCS: 81003; Z7502; 99283

== ENCOUNTER 2017-08-08 13:51 | Emergency (ER) | END 2017-08-08 15:32 | disposition home or self-care (01) ==

== ENCOUNTER 2017-09-10 13:01 | Emergency (ER) | END 2017-09-10 15:46 | disposition home or self-care (01) ==

== ENCOUNTER 2017-11-29 10:56 | Emergency (ER) | END 2017-11-29 13:24 | disposition home or self-care (01) ==

== ENCOUNTER 2017-12-18 13:42 | Emergency (ER) | END 2017-12-18 15:09 | disposition home or self-care (01) ==

== ENCOUNTER 2018-01-06 11:25 | Emergency (ER) | END 2018-01-06 12:15 | disposition home or self-care (01) ==

== ENCOUNTER 2018-07-06 09:21 | Emergency (ER) | END 2018-07-06 12:04 | disposition home or self-care (01) ==

== ENCOUNTER 2018-07-16 12:43 | Emergency (ER) | END 2018-07-16 14:37 | disposition home or self-care (01) ==

== ENCOUNTER 2018-07-21 12:02 | Emergency (ER) | END 2018-07-21 13:15 | disposition home or self-care (01) ==

== ENCOUNTER 2018-08-26 11:18 | Emergency (ER) | payer OTHER ==
[~2018-08-26] VITALS: Ht 165.1 cm; Wt 65.2 kg
[~2018-08-26 11:18] MED LIST changes: +ALBU8.5H8 INH; +AZIT250T PO; +BENZ-6 PO; +D-ME473S2 PO; +DICY10CA40 PO; -DICY10CA60 PO; +GUAI473L22 PO; +IBUP800T48 PO; +LOPE2CAP PO; +NAPR-985 PO; +PRED20TA PO
[2018-08-26 11:24] VITALS: Ht 165.1 cm; Wt 65.2 kg
--- NOTE | 2018-08-26 11:44 | ERD ---
ER Documentation Chief Complaint Chief Complaint Right breast pain for "one year"; U/S done on it 4 months ago HPI 37-year-old female, with history of multiple visits to the emergency department, presents to the emergency department, complaining of right axillary pain for 1 year. The patient denies fevers, no chills, no trauma, the patient is not breast-feeding. The pain is described as dull, constant, 3/10. The patient had a mammogram done last year which was normal. ROS All systems reviewed and are negative except as per history of present illness. Medications Home Meds Active Scripts Acetaminophen* (Tylenol*) 325 Mg Tablet, 2 TAB PO Q8 PRN for PAIN AND OR ELEVATED TEMP, #20 TAB Prov:GRICEL HUNT MD 08/26/18 Guaifenesin-Codeine Phosphate* (Guaifenesin* AC Cough Syrup) 473 Ml Liquid, 5 ML PO BID PRN for COUGH, #60 ML Prov:GRICEL HUNT MD 07/21/18 Albuterol Sulfate* (Proair HFA*) 8.5 Gm Hfa.aer.ad, 2 PUFF INH Q4H PRN for WHEEZING AND SOB, #1 INHALER Prov:GRICEL HUNT MD 07/16/18 Prednisone* (Prednisone*) 20 Mg Tab, 40 MG PO DAILY for 4 Days, TAB Prov:GRICEL HUNT MD 07/16/18 Azithromycin* (Zithromax*) 250 Mg Tablet, 250 MG PO .ZPACK DIRECTED, #6 TAB TAKE 500 MG (2 TABS) THE FIRST DAY THEN 250 MG (1 TAB) DAYS 2-5 Prov:GRICEL HUNT MD 07/16/18 Naproxen* (Naprosyn*) 500 Mg Tablet, 500 MG PO BID PRN for PAIN AND/OR INFLAMMATION, #30 TAB Prov:GIBRAN LOVE PA-C 07/06/18 Ibuprofen* (Motrin*) 600 Mg Tab, 600 MG PO Q6, #20 TAB Prov:IBIS HOWELL MD 01/06/18 Naproxen* (Naprosyn*) 500 Mg Tablet, 500 MG PO BID PRN for PAIN AND/OR INFLAMMATION, #30 TAB Prov:GIBRAN LOVE PA-C 12/18/17 Dextromethorphan Hb-Promethazine Hcl* (Promethazine DM* Syrup) 473 Ml Syrup, 5 ML PO Q6 PRN for COUGH, #100 ML Prov:GIBRAN LOVE PA-C 11/29/17 Benzonatate* (Tessalon Perle*) 100 Mg Capsule, 100 MG PO Q8H PRN for COUGH, #30 CAP Prov:GIBRAN LOVE PA-C 11/29/17 Guaifenesin* (Robitussin*) 100 Mg/5 Ml Syrup, 5 ML PO Q4H PRN for COUGH, #4 OZ Prov:PETER RON Yahaira 08/08/17 Albuterol Sulfate* (Proair HFA*) 8.5 Gm Hfa.aer.ad, 2 PUFF INH Q4, #1 INHALER Prov:ALCIDESILAANDRIYRENEESAVANA Yahaira 08/08/17 Acetaminophen* (Tylophen*) 500 Mg Capsule, 1 CAP PO Q6H PRN for PAIN AND OR ELEVATED TEMP, #20 CAP Prov:ALCIDESILAANDRIYRENEESAVANA F 08/08/17 Ibuprofen* (Motrin*) 800 Mg Tab, 800 MG PO Q8 PRN for PAIN AND OR ELEVATED TEMP, #30 TAB Prov:ARIADNEPETER F 08/08/17 Azithromycin* (Zithromax*) 250 Mg Tablet, 250 MG PO .ZPACK DIRECTED, #6 TAB TAKE 500 MG (2 TABS) THE FIRST DAY THEN 250 MG (1 TAB) DAYS 2-5 Prov:PETER RON F 08/08/17 Loperamide Hcl* (Imodium*) 2 Mg Capsule, 2 MG PO .AFTER EA LOOSE BM PRN for DIARRHEA, #10 TAB Prov:WINIFRED BARTON PA-C 06/24/17 Ibuprofen* (Motrin*) 600 Mg Tab, 600 MG PO Q6, #20 TAB Prov:IBIS HOWELL MD 04/20/17 Acetaminophen* (Tylophen*) 500 Mg Capsule, 1 CAP PO Q6H PRN for PAIN AND OR ELEVATED TEMP, #30 CAP Prov:EMMETT CARPENTER PA-C 6/20/17 Lorazepam* (Ativan*) 0.5 Mg Tablet, 0.5 MG PO Q8H PRN for ANXIETY, #10 TAB Prov:DORONTERRENCE TRAMMELLEL Cornelio 10/05/16 Guaifenesin* (Robitussin*) 100 Mg/5 Ml Syrup, 200 MG PO Q6H PRN for COUGH for 3 Days, ML Prov:MARCIA MOREJON Isis 09/18/16 Metoclopramide* (Reglan*) 10 Mg Tablet, 10 MG PO Q6 PRN for NAUSEA AND/OR VOMITING, #10 TAB Prov:SCOTTIEAARON DO 03/06/16 Docusate Sodium* (Colace*) 100 Mg Capsule, 100 MG PO TID, #30 CAP [facility] 03/06/16 Ondansetron Hcl* (Zofran* ODT) 4 mg -ODT Tab.disper, 4 MG PO Q8, #30 TAB Prov:ABDIEL CONTRERAS EIGHT SECTION BLOWER 02/01/16 Ibuprofen* (Motrin*) 600 Mg Tab, 600 MG PO Q6H PRN for PAIN AND OR ELEVATED TEMP, #30 TAB Prov:ABDIEL CONTRERAS EIGHT SECTION BLOWER 02/01/16 Dicyclomine HCl (Dicyclomine HCl) 10 Mg Capsule, 20 MG PO QID, #20 CAP Prov:ABDIEL CONTRERAS EIGHT SECTION BLOWER 02/01/16 Allergies Allergies: Coded Allergies: amoxicillin (Verified Allergy, Unknown, 03/30/16) PMhx/Soc History of Surgery: Yes (,tonsillectomy,sinus sx) Anesthesia Reaction: No Hx Neurological Disorder: No Hx Respiratory Disorders: No Hx Cardiac Disorders: No Hx Psychiatric Problems: No Hx Miscellaneous Medical Probl: Yes (fibrous breast tissue) Hx Alcohol Use: No Hx Substance Use: No Hx Tobacco Use: No FmHx Family History: No diabetes, No coronary disease Physical Exam Vitals Vital Signs Date Temp Pulse Resp B/P (MAP) Pulse Ox O2 O2 Flow FiO2 Time Delivery Rate 08/26/18 97.0 74 16 118/67 100 11:24 (84) Physical Exam Const: No acute distress Head: Atraumatic Eyes: Normal Conjunctiva ENT: Normal External Ears, Nose and Mouth. Neck: Full range of motion. No meningismus. Resp: Clear to auscultation bilaterally Cardio: Regular rate and rhythm, no murmurs Breast: Symmetrical, no masses, no skin changes, no nipple retraction. Left axillary area: Normal inspection, no masses, no erythema, the patient prefers tenderness to palpation. Abd: Soft, non tender, non distended. Normal bowel sounds Skin: No petechiae or rashes Back: No midline or flank tenderness Ext: No cyanosis, or edema Neur: Awake and alert Psych: Normal Mood and Affect Results 24 hrs Laboratory Tests Test 08/26/18 12:08 08/26/18 12:15 POC Beta HCG, Qualitative NEGATIVE Bedside Urine pH (LAB) 7.5 Bedside Urine Protein (LAB) Negative Bedside Urine Glucose (UA) Negative Bedside Urine Ketones (LAB) Negative Bedside Urine Blood Negative Bedside Urine Nitrite (LAB) Negative Bedside Urine Leukocyte Esterase (L 1+ DIAGNOSTIC IMAGING REPORT Patient: KELLY OLIVA : 1980 Age: 37 Sex: F MR #: [id number] DOS: 08/26/18 1149 Ordering MD: GRICEL HUNT MD Location: [facility] Room/Bed: PROCEDURE: Left axillary ultrasound CLINICAL INDICATION: Left axillary pain TECHNIQUE: Multiplanar sonographic images of the left axilla were obtained using buck scale and color Doppler technique. COMPARISON: None FINDINGS: No abnormal enlarged lymph nodes are identified. No mass is seen. No fluid collection is seen. IMPRESSION: No sonographic evidence for an acute abnormality. RPTAT: HPNM Physician Amelia Date Time Electronically viewed and signed by Physician Amelia on 08/26/2018 13:11 / CC: GRICEL HUNT MD [phone] Procedures/MDM Vital signs stable. Differential diagnosis considered include hematoma, mastitis, lipoma, cyst, fibroglandular changes of the breast. Low suspicion for malignancy. During the ED course the patient remained stable, no new complaints. Results and clinical impression discussed with the patient who agrees with gabriella burroughs. At this time no evidence of abscess, infection, no masses. The patient is stable to be treated outpatient and will be discharged home with a Rx for acetaminophen, some side effects of prescribed medications (headache, rash, nausea, vomiting, diarrhea, bleeding, hypertension, interactions with other medications) were reviewed. Follow up with the primary care provider in the next 48h has been recommended. If symptoms persist, worsen or new symptoms develop, then patient should return to the ED immediately. Instructions explained and given directly by me to the patient with acknowledgment and demonstrated understanding. Disclaimer: Inadvertent spelling and grammatical errors are likely due to EHR/dictation software use and do not reflect on the overall quality of patient care. Also, please note that the electronic time recorded on this note does not necessarily reflect the actual time of the patient encounter. Departure Diagnosis: Primary Impression: Pain in left axilla Condition: Stable Additional Instructions: Muchas lizeth por [facility] para zamora servicio. Esperamos que en zamora visita a la ahsan de emergencia zamora problema medico haya sido solucionado y que se sienta mucho mejor. Para estar seguros que zamora mejoria sigue en proceso, le pedimos el favor de hacer eulalio ines de seguimiento medico con zamora doctor primario en los proximos 2-4 serrano. Lleve con usted estos documentos y las medicinas recetadas. Si emili sintomas empeoran, NO SE ESPERE, por favor regrese a ahsan de emergencia INMEDIATAMENTE. En carlos manuel que usted no tenga un mdico de atencin primaria: Llame al mdico o clnica comunitaria de referencia que aparece abajo brent las horas de consultorio para hacer eulalio ines para que le vean. CLINICAS: [facility] [phone] [id number] [facility] [phone] [id number] [facility] [id number] [facility] [phone] [id number] [place] [id number] [phone] [facility]. [phone] GRICEL HILL MD Aug 26, 2018 11:44
[2018-08-26] MEDS ORDERED: ACET325T33 PO (12:57)
== END 2018-08-26 13:15 | disposition home or self-care (01) ==
LOC: FTE 11:18
DX: M79.622 Pain in left upper arm (principal)
CPT/HCPCS: 76536; 81003; 81025; Z7502

== ENCOUNTER 2019-02-17 10:18 | Emergency (ER) | payer OTHER ==
[~2019-02-17] VITALS: Ht 162.6 cm; Wt 66.0 kg
[~2019-02-17 10:18] MED LIST changes: +ACET325T33 PO; +BENZ1LOZ52 MM; +FLUT9.9S NASAL; +LORA-186 PO; +LORA10CA PO
[2019-02-17 10:23] VITALS: BP 117/69; PULSE 75; RESP 18; Ht 162.6 cm; Wt 66.0 kg
--- NOTE | 2019-02-17 11:09 | ERD ---
ER Documentation Chief Complaint Chief Complaint sore throat x 2 weeks HPI Patient is a 38-year-old female presents to the ER for concerns of sore throat x2 weeks. Patient reports pain with swallowing. Patient has no drooling, trismus or hyper extension of her neck. Patient has no neck pain or neck stiffness. Patient reports a mild dry cough. Patient has no fevers or chills. Patient denies any nausea, vomiting, abdominal pain, chest pain, shortness of breath or LOC. Patient's daughter is a sick contact as well. ROS All systems reviewed and are negative except as per history of present illness. Medications Home Meds Active Scripts Benzonatate* (Tessalon Perle*) 100 Mg Capsule, 100 MG PO Q8H PRN for COUGH, #20 CAP Prov:NARENDRA GOODMAN PA-C 02/17/19 Benzocaine/Menthol* (Cepacol* Sore Throat Lozenges) 1 Each Lozenge, 1 EACH MM q2h PRN for SORE THROAT, #20 LOZENGE Prov:NARENDRA GOODMAN PA-C 02/17/19 Acetaminophen* (Tylenol*) 325 Mg Tablet, 2 TAB PO Q8 PRN for PAIN AND OR E LEVATED TEMP, #20 TAB Prov:GRICEL HUNT MD 08/26/18 Guaifenesin-Codeine Phosphate* (Guaifenesin* AC Cough Syrup) 473 Ml Liquid, 5 ML PO BID PRN for COUGH, #60 ML Prov:GRICEL HUNT MD 07/21/18 Albuterol Sulfate* (Proair HFA*) 8.5 Gm Hfa.aer.ad, 2 PUFF INH Q4H PRN for WHEEZING AND SOB, #1 INHALER Prov:GRICEL HUNT MD 07/16/18 Prednisone* (Prednisone*) 20 Mg Tab, 40 MG PO DAILY for 4 Days, TAB Prov:GRICEL HUNT MD 07/16/18 Azithromycin* (Zithromax*) 250 Mg Tablet, 250 MG PO .ZPACK DIRECTED, #6 TAB TAKE 500 MG (2 TABS) THE FIRST DAY THEN 250 MG (1 TAB) DAYS 2-5 Prov:GRICEL HUNT MD 07/16/18 Naproxen* (Naprosyn*) 500 Mg Tablet, 500 MG PO BID PRN for PAIN AND/OR INFLAMMATION, #30 TAB Prov:GIBRAN LOVE PA-C 07/06/18 Ibuprofen* (Motrin*) 600 Mg Tab, 600 MG PO Q6, #20 TAB Prov:IBIS HOWELL MD 01/06/18 Naproxen* (Naprosyn*) 500 Mg Tablet, 500 MG PO BID PRN for PAIN AND/OR INFLAMMATION, #30 TAB Prov:GIBRAN LOVE PA-C 12/18/17 Dextromethorphan Hb-Promethazine Hcl* (Promethazine DM* Syrup) 473 Ml Syrup, 5 ML PO Q6 PRN for COUGH, #100 ML Prov:GIBRAN LOVE PA-C 11/29/17 Benzonatate* (Tessalon Perle*) 100 Mg Capsule, 100 MG PO Q8H PRN for COUGH, #30 CAP Prov:GIBRAN LOVE PA-C 11/29/17 Guaifenesin* (Robitussin*) 100 Mg/5 Ml Syrup, 5 ML PO Q4H PRN for COUGH, #4 OZ Prov:PETER RON 08/08/17 Albuterol Sulfate* (Proair HFA*) 8.5 Gm Hfa.aer.ad, 2 PUFF INH Q4, #1 INHALER Prov:ALCIDESILAPETER ASHRAF F 08/08/17 Acetaminophen* (Tylophen*) 500 Mg Capsule, 1 CAP PO Q6H PRN for PAIN AND OR ELEVATED TEMP, #20 CAP Prov:PASILAPETER ASHRAF F 08/08/17 Ibuprofen* (Motrin*) 800 Mg Tab, 800 MG PO Q8 PRN for PAIN AND OR ELEVATED TEMP, #30 TAB Prov:PETER RON 08/08/17 Azithromycin* (Zithromax*) 250 Mg Tablet, 250 MG PO .LATANYA DIRECTED, #6 TAB TAKE 500 MG (2 TABS) THE FIRST DAY THEN 250 MG (1 TAB) DAYS 2-5 Prov:PASILARENEE ASHRAFAR F 08/08/17 Loperamide Hcl* (Imodium*) 2 Mg Capsule, 2 MG PO .AFTER EA LOOSE BM PRN for DIARRHEA, #10 TAB Prov:WINIFRED BARTON PA-C 06/24/17 Ibuprofen* (Motrin*) 600 Mg Tab, 600 MG PO Q6, #20 TAB Prov:IBIS HOWELL MD 04/20/17 Acetaminophen* (Tylophen*) 500 Mg Capsule, 1 CAP PO Q6H PRN for PAIN AND OR ELEVATED TEMP, #30 CAP Prov:EMMETT CARPENTER PA-C 01/11/17 Lorazepam* (Ativan*) 0.5 Mg Tablet, 0.5 MG PO Q8H PRN for ANXIETY, #10 TAB Prov:MARIO MILLER 10/05/16 Guaifenesin* (Robitussin*) 100 Mg/5 Ml Syrup, 200 MG PO Q6H PRN for COUGH for 3 Days, ML Prov:MARCIA MOREJON 09/18/16 Metoclopramide* (Reglan*) 10 Mg Tablet, 10 MG PO Q6 PRN for NAUSEA AND/OR VOMITING, #10 TAB Prov:AARON RUBIN DO 03/06/16 Docusate Sodium* (Colace*) 100 Mg Capsule, 100 MG PO TID, #30 CAP Prov:AARON RUBIN DO 03/06/16 Ondansetron Hcl* (Zofran* ODT) 4 mg -ODT Tab.disper, 4 MG PO Q8, #30 TAB Prov:ABDIEL CONTRERAS NP 02/01/16 Ibuprofen* (Motrin*) 600 Mg Tab, 600 MG PO Q6H PRN for PAIN AND OR ELEVATED TEMP, #30 TAB Prov:ABDIEL CONTRERAS NP 02/01/16 Dicyclomine HCl (Dicyclomine HCl) 10 Mg Capsule, 20 MG PO QID, #20 CAP Prov:ABDIEL CONTRERAS TELEPHONE WORKER 02/01/16 Allergies Allergies: Coded Allergies: amoxicillin (Verified Allergy, Unknown, 03/30/16) PMhx/Soc History of Surgery: Yes (,tonsillectomy,sinus sx) Anesthesia Reaction: No Hx Neurological Disorder: No Hx Respiratory Disorders: No Hx Cardiac Disorders: No Hx Psychiatric Problems: No Hx Miscellaneous Medical Probl: Yes (fibrous breast tissue) Hx Alcohol Use: No Hx Substance Use: No Hx Tobacco Use: No Smoking Status: Never smoker FmHx Family History: No diabetes Physical Exam Vitals Vital Signs Date Temp Pulse Resp B/P (MAP) Pulse Ox O2 O2 Flow FiO2 Time Delivery Rate 02/17/19 97.6 75 18 117/69 98 10:23 (85) Physical Exam GENERAL: Well-developed, well-nourished female. Appears in no acute distress. HEAD: Normocephalic, atraumatic. No deformities or ecchymosis. EYE: Pupils equal, round, and reactive to light. EOMs intact. No conjunctival erythema. No eye discharge. ENT: External ear without any masses or tenderness. Auditory canals clear bilaterally. TM visualized bilaterally, non-erythematous, non-bulging. Nasal mucosa pink with no discharge. Oropharynx is pink without any tonsillar erythema or exudates. No uvula deviation. No kissing tonsils. NECK: Supple. No meningismus. Normal ROM of the neck. LUNG: Clear to auscultation bilaterally. No rhonchi, wheezing, rales or coarse breath sounds. HEART: Regular rate and rhythm. No murmurs, rubs or gallops. ABDOMEN: Soft, nontender, and nondistended. Positive bowel sounds in all four quadrants. No rebound tenderness, no guarding. (-) McBurney's point tenderness. No CVA tenderness. : deferred BACK: No midline tenderness. EXTREMITIES: Equal pulses bilaterally. No peripheral clubbing, cyanosis or edema. No unilateral leg swelling. NEUROLOGIC: Alert and oriented to person, place and time. Moving all four extremities. 5/5 strength in all extremities. Normal speech. Steady gait SKIN: Normal color. Warm and dry. No rashes or lesions. Procedures/MDM MEDICAL DECISION MAKING: This is a 38-year-old female presents the ER for concerns of a sore throat for last 2 weeks as well as a mild dry cough. Vital signs were reviewed. Patient was afebrile. Patient was not hypoxic. ENT exam was normal. Lung exam was normal. Given these findings, the patients presentation is most consistent with viral URI. I have a much lower clinical concern for bacterial infections including pneumonia, meningitis, sinusitis, otitis externa, acute otitis media, strep pharyngitis, epiglottitis or peritonsillar abscess. Patient was nontoxic, [id number] prior to discharge. PRESCRIPTIONS: Cepacol throat lozenges, Tessalon Perles DISCHARGE: At this time, patient is stable for discharge and outpatient management. Supportive therapies such as OTC throat lozenges, salt water gurgles, popsicles and jello discussed. I have instructed the patient to follow-up with his/her primary care physician in 1-2 days. I have instructed the patient to promptly return to the ER for any new or worsening symptoms including increased pain, swelling, fever, nausea, vomiting, weakness or difficulty breathing. The patient and/or family expressed understanding of and agreement with this plan. All questions were answered. Home care instructions were provided. Disclaimer: Inadvertent spelling and grammatical errors are likely due to EHR/dictation software use and do not reflect on the overall quality of patient care. Also, please note that the electronic time recorded on this note does not necessarily reflect the actual time of the patient encounter. Departure Diagnosis: Primary Impression: Upper respiratory infection URI type: unspecified URI Qualified Codes: J06.9 - Acute upper respiratory infection, unspecified Condition: Fair Patient Instructions: Preventing Common Respiratory Infections Referrals: [facility] (PCP) Additional Instructions: Llame al doctor MAANA y rochelle eulalio LESTER PARA DENTRO DE 1-2 CORTES.Dgale a la secretaria que nosotros le instruimos hacer esta lester.Avise o llame si zamora condicin se empeora antes de la lester. Regresa aqui si peor o no mejor. NARENDRA GOODMAN PA-C Feb 17, 2019 11:09
== END 2019-02-17 10:52 | disposition home or self-care (01) ==
LOC: FTE 10:18
DX: J06.9 Acute upper respiratory infection, unspecified (principal)
CPT/HCPCS: 99283

== ENCOUNTER 2019-03-09 11:10 | Emergency (ER) | payer OTHER ==
[~2019-03-09] VITALS: Ht 154.9 cm; Wt 66.4 kg
[2019-03-09 11:19] VITALS: BP 107/67; PULSE 69; RESP 17; Ht 154.9 cm; Wt 66.4 kg
--- NOTE | 2019-03-09 16:33 | ERD ---
ER Documentation Chief Complaint Chief Complaint EAR PAIN, THROAT PAIN X2 DAYS HPI This is a 38-year-old female presents to the ED complaining of intermittent throat pain times several months. Patient states she was seen here a few weeks ago and it was with a viral illness. She states she continues to have throat pain but has no dysphasia or difficulty swallowing. States her pain is worse at nighttime and when lying down. She also does report a dry cough at nighttime as well. No fevers, shortness of breath. 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 She has not been taking any allergic medications for this. ROS All systems reviewed and are negative except as per history of present illness. Medications Home Meds Active Scripts Loratadine* (Claritin*) 10 Mg Tablet, 10 MG PO DAILY, #30 TAB Prov:JAMES BECKETT PA-C 03/09/19 Fluticasone Propionate (Flonase Allergy Relief) 9.9 Ml [place].susp, 2 SPRAY NASAL DAILY, #1 BOTTLE TO EACH NOSTRIL Prov:JAMES BECKETT PA-C 03/09/19 Benzonatate* (Tessalon Perle*) 100 Mg Capsule, 100 MG PO Q8H PRN for COUGH, #20 CAP Prov:NARENDRA GOODMAN PA-C 02/17/19 Benzocaine/Menthol* (Cepacol* Sore Throat Lozenges) 1 Each Lozenge, 1 EACH MM q2h PRN for SORE THROAT, #20 LOZENGE Prov:NARENDRA GOODMAN PA-C 02/17/19 Acetaminophen* (Tylenol*) 325 Mg Tablet, 2 TAB PO Q8 PRN for PAIN AND OR ELEVATED TEMP, #20 TAB Prov:GRICEL HUNT MD 08/26/18 Guaifenesin-Codeine Phosphate* (Guaifenesin* AC Cough Syrup) 473 Ml Liquid, 5 ML PO BID PRN for COUGH, #60 ML Prov:GRICEL HUNT MD 07/21/18 Albuterol Sulfate* (Proair HFA*) 8.5 Gm Hfa.aer.ad, 2 PUFF INH Q4H PRN for WHEEZING AND SOB, #1 INHALER Prov:GRICEL HUNT MD 07/16/18 Prednisone* (Prednisone*) 20 Mg Tab, 40 MG PO DAILY for 4 Days, TAB Prov:GRICEL HUNT MD 07/16/18 Azithromycin* (Zithromax*) 250 Mg Tablet, 250 MG PO .ZPACK DIRECTED, #6 TAB TAKE 500 MG (2 TABS) THE FIRST DAY THEN 250 MG (1 TAB) DAYS 2-5 Prov:GRICEL HUNT MD 07/16/18 Naproxen* (Naprosyn*) 500 Mg Tablet, 500 MG PO BID PRN for PAIN AND/OR INFLAMMATION, #30 TAB Prov:GIBRAN LOVE PA-C 07/06/18 Ibuprofen* (Motrin*) 600 Mg Tab, 600 MG PO Q6, #20 TAB Prov:IBIS HOWELL MD 01/06/18 Naproxen* (Naprosyn*) 500 Mg Tablet, 500 MG PO BID PRN for PAIN AND/OR INFLAMMATION, #30 TAB Prov:GIBRAN LOVE PA-C 12/18/17 Dextromethorphan Hb-Promethazine Hcl* (Promethazine DM* Syrup) 473 Ml Syrup, 5 ML PO Q6 PRN for COUGH, #100 ML Prov:GIBRAN LOVE PA-C 11/29/17 Benzonatate* (Tessalon Perle*) 100 Mg Capsule, 100 MG PO Q8H PRN for COUGH, #30 CAP Prov:GIBRAN LOVE PA-C 11/29/17 Guaifenesin* (Robitussin*) 100 Mg/5 Ml Syrup, 5 ML PO Q4H PRN for COUGH, #4 OZ Prov:PETER RON 08/08/17 Albuterol Sulfate* (Proair HFA*) 8.5 Gm Hfa.aer.ad, 2 PUFF INH Q4, #1 INHALER Prov:PETER RON 08/08/17 Acetaminophen* (Tylophen*) 500 Mg Capsule, 1 CAP PO Q6H PRN for PAIN AND OR ELEVATED TEMP, #20 CAP Prov:PETER RON 08/08/17 Ibuprofen* (Motrin*) 800 Mg Tab, 800 MG PO Q8 PRN for PAIN AND OR ELEVATED TEMP, #30 TAB Prov:PETER RON 08/08/17 Azithromycin* (Zithromax*) 250 Mg Tablet, 250 MG PO .KelvinPACK DIRECTED, #6 TAB TAKE 500 MG (2 TABS) THE FIRST DAY THEN 250 MG (1 TAB) DAYS 2-5 Prov:PETER RON 08/08/17 Loperamide Hcl* (Imodium*) 2 Mg Capsule, 2 MG PO .AFTER EA LOOSE BM PRN for TYRONE RRHEA, #10 TAB Prov:WINIFRED BARTON PA-C 06/24/17 Ibuprofen* (Motrin*) 600 Mg Tab, 600 MG PO Q6, #20 TAB Prov:IBIS HOWELL MD 04/20/17 Acetaminophen* (Tylophen*) 500 Mg Capsule, 1 CAP PO Q6H PRN for PAIN AND OR ELEVATED TEMP, #30 CAP Prov:EMMETT CARPENTER PA-C 01/11/17 Lorazepam* (Ativan*) 0.5 Mg Tablet, 0.5 MG PO Q8H PRN for ANXIETY, #10 TAB Prov:MARIO MILLER 10/05/16 Guaifenesin* (Robitussin*) 100 Mg/5 Ml Syrup, 200 MG PO Q6H PRN for COUGH for 3 Days, ML Prov:MARCIA MOREJON 09/18/16 Metoclopramide* (Reglan*) 10 Mg Tablet, 10 MG PO Q6 PRN for NAUSEA AND/OR VOMITING, #10 TAB Prov:AARON RUBIN DO 03/06/16 Docusate Sodium* (Colace*) 100 Mg Capsule, 100 MG PO TID, #30 CAP Prov:AARON RUBIN DO 03/06/16 Ondansetron Hcl* (Zofran* ODT) 4 mg -ODT Tab.disper, 4 MG PO Q8, #30 TAB Prov:ABDIEL CONTRERAS NP 02/01/16 Ibuprofen* (Motrin*) 600 Mg Tab, 600 MG PO Q6H PRN for PAIN AND OR ELEVATED TEMP, #30 TAB Prov:ABDIEL CONTRERAS STEAM BRUSH OPERATOR 02/01/16 Dicyclomine HCl (Dicyclomine HCl) 10 Mg Capsule, 20 MG PO QID, #20 CAP Prov:ABDIEL CONTRERAS STEAM BRUSH OPERATOR 02/01/16 Allergies Allergies: Coded Allergies: amoxicillin (Verified Allergy, Unknown, 03/30/16) PMhx/Soc History of Surgery: Yes (,tonsillectomy,sinus sx) Anesthesia Reaction: No Hx Neurological Disorder: No Hx Respiratory Disorders: No Hx Cardiac Disorders: No Hx Psychiatric Problems: No Hx Miscellaneous Medical Probl: Yes (fibrous breast tissue) Hx Alcohol Use: No Hx Substance Use: No Hx Tobacco Use: No Smoking Status: Never smoker FmHx Family History: No diabetes Physical Exam Vitals Vital Signs Date Temp Pulse Resp B/P (MAP) Pulse Ox O2 O2 Flow FiO2 Time Delivery Rate 03/09/19 97.3 69 17 107/67 100 11:19 (80) Physical Exam Const: No acute distress Head: Atraumatic Eyes: Normal Conjunctiva. EOMI. PERRLA. ENT: + Postnasal drip seen down the posterior oropharynx. Posterior OP mildly erythematous. Bilateral TMs nonerythematous and nonbulging, good cone of light reflex. No mastoid tenderness. No facial or sinus tenderness. Neck: Full range of motion. No meningismus. + Lymphadenopathy. Resp: Clear to auscultation bilaterally Cardio: Regular rate and rhythm, no murmurs Ext: No cyanosis, or edema Neur: Awake and alert Psych: Normal Mood and Affect Procedures/MDM MEDICAL DECISION MAKIN-year-old Bengali-speaking female presents with chronic throat pain for the past several months. Patient has evidence of postnasal drip. I believe her symptoms are secondary to seasonal allergies. Will discharge home with a trial of antihistamines and decongestions. She has no evidence of peritonsillar abscess, strep pharyngitis, pneumonia or any other bacterial illness at this time. She is afebrile and nontoxic-appearing. No hypoxia or respiratory distress. She is otherwise healthy and can follow-up as outpatient. Strict precautions were discussed. PRESCRIPTIONS: Claritin, Flonase SPECIALIST FOLLOW UP RECOMMENDED: None Departure Diagnosis: Primary Impression: PND (post-nasal drip) Additional Impression: Allergies Encounter type: initial encounter Qualified Codes: T78.40XA - Allergy, unspecified, initial encounter Condition: Stable Patient Instructions: Nasal Allergies: Related Problems Additional Instructions: Call your primary care doctor TOMORROW for an appointment during the next 2-4 days and bring all the information and medications prescribed. If the symptoms get worse and your provider is unavailable, return to the Emergency Department immediately. JAMES BECKETT PA-C Mar 09, 2019 16:33
== END 2019-03-09 12:27 | disposition home or self-care (01) ==
LOC: FTE 11:10
DX: R09.82 Postnasal drip (principal)
CPT/HCPCS: 99282